=== PATIENT | female | born 1990 | race Caucasian/White ===

== ENCOUNTER → 2022-06-18 | Outpatient (CLI) | payer OTHER, SELFPAY ==
[2022-06-18 10:51] LABS: Anion Gap 6 (5-15); BUN 10 mg/dL (7-18); BUN/Creat Ratio 12.9 RATIO (10-20); Chloride 104 mmol/L (98-107); Cholesterol 272 mg/dL (200); Creatinine, Serum 0.78 mg/dL (0.55-1.02); EST Glomerular Filtration Rate 92 mL/min (>60); Est Glom Filt Rate - Afr Amer 111 mL/min (>60); Glucose 85 mg/dL (74-106); High Density Lipoprotein 59 mg/dL; Potassium 4.1 mmol/L (3.5-5.1); Sodium Level 136 mmol/L (136-145); Triglycerides 424 mg/dL
== END | disposition home or self-care (01) ==
LOC: MFPLAB 08:26
PROVIDERS: PCP Family Medicine; Visit Provider Family Medicine
DX: Z00.00 Encounter for general adult medical examination without abnormal findings (principal)
CPT/HCPCS: 36415; 80048; 80061

== ENCOUNTER → 2023-05-30 | Outpatient (CLI) | payer OTHER, SELFPAY ==
--- OUTSIDE RECORDS SUMMARY | 2023-05-30 07:17 | XMS RPT_ITS | CCD ---
Author Name Unknown Address [address] [place] [address] Organization [facility] Care Team Providers Care Bill Cutter Name Role Phone Unavailable Primary Care Provider UnavailLIZETH Suazo Attending Unavailable Medications Completed/Discontinued Medications Medication Drug Class(es) Dates Sig (Normalized) Sig (Original) citalopram 40 mg oral tablet (1 source) Serotonin Reuptake Inhibitor take 1 tablet by mouth once daily citalopram (CELEXA) 40 mg tablet Take 40 mg by mouth once daily. 0 Active Problems Problem Classification Problem Date Documented Da te Episodic/Chronic Contraceptive and procreative management (1 source) Oral contraception; Translations: [Encounter for surveillance of contraceptive pills] Episodic Results Test Name Value Interpretation Reference Range Facil ity Vital Signs Date Time Vital Sign Value Performing Clinician Valorie lity 06-18-2022 09:55-0500 Body height 164 cm Lizeth Shabana PRINT WASHER.JONATHAN Work Phone: [facility] 06-18-2022 09:55-0500 Body weight 82.1 kg Lizeth Shabana PRINT WASHER.JONATHAN Work Phone: [facility] 06-18-2022 09:55-0500 Diastolic blood pressure 82 mm[Hg] Lizeth [place] PRINT WASHER.PUNCHBOARD ASSEMBLER Work Phone: [facility] 06-18-2022 09:55-0500 Systolic blood pressure 112 mm[Hg] Lizeth [place] PRINT WASHER.PUNCHBOARD ASSEMBLER Work Phone: [facility] Encounters Encounter Date Encounter Type Care Provider Facility Start: 06-18-2022 End: 06-18-2022 ambulatory LIZETH VIERAF Facility:[facility] Start: 06-18-2022 End: 06-18-2022 Patient encounter procedure Lizeth Yucalf PRINT WASHER.PUNCHBOARD ASSEMBLER Work Phone: OB/Gynecology Plan of Treatment Date Care Activity Detail Author Start: 03-14-2026 HPV TESTING HPV TESTING [facility] Start: 03-14-2026 PAP TESTING PAP TESTING [facility] Start: 05-06-2022 DEPRESSION ASSESSMENT DEPRESSION ASS ESSMENT [facility] Start: 01-04-2022 Influenza vaccination INFLUENZA (#1) [facility] Start: 2009 Urine microalbumin profile DTAP,TDAP ,TD (1 - Tdap) [facility] Start: 2008 HEPATITIS C SCREENING HEPATITIS C SC REENING [facility] Start: 2008 HIV SCREENING HIV SCREENING [facility] Start: 01-11-1991 COVID-19 VACCINE (#1) COVID-19 VACCI NE (#1) [facility] Start: 1990 HEPATITIS B (1 of 3 - 3-dose series) HEPATITIS B (1 of 3 - 3-dose series) [facility] Payers Date Payer Category Payer Unknown [employer] [id number] 2018-Present [phone] [address] [place] [address] PPO [id number] 2018 Unknown [id number] Social History Date Type Detail Facility Start: 12-12-2017 Tobacco smoking stat us UTIS Never smoked tobacco [facility] Work Phone: Start: 12-12-2017 Tobacco use and exposure Smoke less tobacco non-user [facility] Work Phone: Start: 06-18-2022 Alcohol intake Current drinke r of alcohol (finding) [facility] Start: 01-18-2020 History SDOH Social Connections Phone 4 [facility] Start: 01-18-2020 History SDOH Social Connections Amish 1 [facility] Start: 01-18-2020 History SDOH Social Connections Membership 2 [facility] Start: 01-18-2020 History SDOH Social Connections Living 7 [facility] Start: 01-18-2020 History SDOH Physica l Activity DPW 3 [facility] Start: 01-18-2020 History SDOH Financial 5 [facility] Start: 01-18-2020 Education 17 [facility] Start: 12-12-2017 Alcohol Comment Socially [facility] Start: 1990 Sex Assigned At Not on file [facility] Progress note 06-18-2022 Note Date & Type Note Facility 06-18-2022 Note HNO ID: [id number] Author: Lizeth Garsia APRN.CNP Service: ? Author Type: Nurse Practitioner Type: Progress Notes Filed: 06/18/2022 10:33 AM Note Text: Reed is a 31 year old who presents for an annual gynecologic exam without complaints. Menses: cycles every 28 days and 5 days of flow. Contraception: combined hormonal contraceptives HPV vaccine: No Last Pap: 03/21/2021 normal HPV: 03/17/2021 negative History of abnormal pap: No Last mammogram: never Sexually active: Yes Pain with intercourse: No Postcoital bleeding: No OB History T0 L0 SAB0 IAB0 Ectopic0 Multiple0 Live Births0 Warper Tender History LMP: 06/05/2022 (Exact Date), Having periods Age at Menarche: Age at First : Age at Menopause: Warper Tender History Comments: Sexual Activity: Yes; Male Contraception: Condom, Pill PAST MEDICAL HISTORY Diagnosis Date High cholesterol PAST SURGICAL HISTORY Procedure Laterality Date NONE FAMILY HISTORY Problem Relation Age of Onset other (Other) Mother Mother was adopted Asthma Father Hyperlipidemia Father Cancer Paternal Aunt 76 Ovarian Hyperlipidemia Sister Asthma Sister Hyperlipidemia Brother No Known Problems Paternal Grandmother No Known Problems Paternal Grandfather SOCIAL HISTORY Social History Tobacco Use Smoking status: Never Smokeless tobacco: Never Vaping Use Vaping Use: Never used Substance Use Topics Alcohol use: Yes Comment: Socially Drug use: No REVIEW OF SYSTEMS Abdomen: No abdominal pain, nausea, vomiting, diarrhea, or constipation. No bloating, early satiety, indigestion, or increased flatulence. Bladder: No dysuria, gross hematuria, urinary frequency, urinary urgency, or incontinence. Breast: No breast lumps, nipple d/c, overlying skin changes, redness or skin retraction. Allergies and current medication updated:Yes EXAM: Ht 5' 4.567 (1.64m) Wt 181 lb (82.1kg) LMP 06/05/2022 BMI 30.53 kg/(m2). GENERAL: pleasant, female in no apparent distress HEENT: Normocephalic, atraumatic, and no lesions NECK: Supple, full range of motion, no adenopathy, and thyroid normal DERMATOLOGY: Normal, without lesions, non-icteric, and non-hirsute BREAST: soft, non-tender, symmetric, no dominant mass, normal nipple-areolar complex, no lymphadenopathy, and no nipple discharge CHEST: Normal inspiratory effort ABDOMEN: soft, non-tender, and no masses PELVIC: external genitalia normal, normal Bartholin's glands, urethra, [place]'s glands, no vulvar lesions, no cervical lesions, good vaginal support, physiologic discharge present, normal appearing perineal body and perianal region BIMANUAL: uterus normal size, shape and consistency, no adnexal masses, and non-tender RECTOVAGINAL: deferred. NEURO: alert and oriented x3,exam grossly non-focal EXTREMITIES: normal ASSESSMENT/PLAN: 1) Health maintenance: Pap/HPV up to date. Mammogram starting age 40. Nutrition, exercise and routine health maintenance exams reviewed. Calcium/Vitamin D supplementation information provided. 2) Contraception: combined hormonal contraceptives. Contraceptive options reviewed and information provided. 3) STD screening: Declined STD check. 4) Follow up one year or sooner as needed Lizeth Garsia APRN.JONATHAN [facility] History of Present illness Narrative 06-18-2022 Lizeth Garsia APRN.JONATHAN - 06/18/2022 9:55 AM EST Note Date & Type Note Facility 06-18-2022 History of Presen t illness Narrative Reed is a 31 year old who presents for an annual gynecologic exam without complaints. Menses: cycles every 28 days and 5 days of flow. Contraception: combined hormonal contraceptives HPV vaccine: No Last Pap: 03/21/2021 normal HPV: 03/17/2021 negative History of abnormal pap: No Last mammogram: never Sexually active: Yes Pain with intercourse: No Postcoital bleeding: No OB History T0 L0 SAB0 IAB0 Ectopic0 Multiple0 Live Births0 Warper Tender History LMP: 06/05/2022 (Exact Date), Having periods Age at Menarche: Age at First : Age at Menopause: Warper Tender History Comments: Sexual Activity: Yes; Male Contraception: Condom, Pill PAST MEDICAL HISTORY Diagnosis Date High cholesterol PAST SURGICAL HISTORY Procedure Laterality Date NONE FAMILY HISTORY Problem Relation Age of Onset other (Other) Mother Mother was adopted Asthma Father Hyperlipidemia Father Cancer Paternal Aunt 76 Ovarian Hyperlipidemia Sister Asthma Sister Hyperlipidemia Brother No Known Problems Paternal Grandmother No Known Problems Paternal Grandfather SOCIAL HISTORY Social History Tobacco Use Smoking status: Never Smokeless tobacco: Never Vaping Use Vaping Use: Never used Substance Use Topics Alcohol use: Yes Comment: Socially Drug use: No REVIEW OF SYSTEMS Abdomen: No abdominal pain, nausea, vomiting, diarrhea, or constipation. No bloating, early satiety, indigestion, or increased flatulence. Bladder: No dysuria, gross hematuria, urinary frequency, urinary urgency, or incontinence. Breast: No breast lumps, nipple d/c, overlying skin changes, redness or skin retraction. Allergies and current medication updated:Yes EXAM: Ht 5' 4.567 (1.64m) Wt 181 lb (82.1kg) LMP 06/05/2022 BMI 30.53 kg/(m^2). GENERAL: pleasant, female in no apparent distress HEENT: Normocephalic, atraumatic, and no lesions NECK: Supple, full range of motion, no adenopathy, and thyroid normal DERMATOLOGY: Normal, without lesions, non-icteric, and non-hirsute BREAST: soft, non-tender, symmetric, no dominant mass, normal nipple-areolar complex, no lymphadenopathy, and no nipple discharge CHEST: Normal inspiratory effort ABDOMEN: soft, non-tender, and no masses PELVIC: external genitalia normal, normal Bartholin's glands, urethra, [place]'s glands, no vulvar lesions, no cervical lesions, good vaginal support, physiologic discharge present, normal appearing perineal body and perianal region BIMANUAL: uterus normal size, shape and consistency, no adnexal masses, and non-tender RECTOVAGINAL: deferred. NEURO: alert and oriented x3,exam grossly non-focal EXTREMITIES: normal ASSESSMENT/PLAN: 1) Health maintenance: Pap/HPV up to date. Mammogram starting age 40. Nutrition, exercise and routine health maintenance exams reviewed. Calcium/Vitamin D supplementation information provided. 2) Contraception: combined hormonal contraceptives. Contraceptive options reviewed and information provided. 3) STD screening: Declined STD check. 4) Follow up one year or sooner as needed Lizeth Garsia APRN.PUNCHBOARD ASSEMBLER documented in this encounter [facility] Progress note 07-26-2021 Note Date & Type Note Facility 07-26-2021 Note HNO ID: [id number] Author: Jeison Rivera APRN.JONATHAN Service: ? Author Type: Nurse Practitioner Type: Progress Notes Filed: 07/26/2021 7:47 AM Note Text: Subjective HPI HPI Reed Mojica is a 31 year old female who presents today for CC of left eye redness, drainage, crusting. This started 1 day ago. Has tried nothing for relief. Symptoms are worsened by nothing. Risk factors recent exposures to pink eye at work/school. Some nasal congestion. Denies cough, st, ear pain. Denies possibility of being . Wears contacts. .Patient presents with: Eye Problem: x 1 day, left eye red and matting PAST MEDICAL HISTORY Diagnosis Date - High cholesterol PAST SURGICAL HISTORY Procedure Laterality Date - NONE ALLERGIES Patient has no known allergies. MEDICATIONS Desogestrel-Ethinyl Estradiol (APRI) 0.15-0.03 mg per tablet Take 1 tablet by mouth once daily. citalopram (CELEXA) 40 mg tablet Take 40 mg by mouth once daily. ciprofloxacin HCl (CILOXAN) 0.3 % ophthalmic solution Use 1 Drop in the left eye four times daily for 7 days. FAMILY HISTORY Problem Relation Age of Onset - other (Other) Mother Mother was adopted - Asthma Father - Hyperlipidemia Father - Cancer Paternal Aunt 76 Ovarian - Hyperlipidemia Sister - Asthma Sister - Hyperlipidemia Brother - No Known Problems Paternal Grandmother - No Known Problems Paternal Grandfather Social History Tobacco Use - Smoking status: Never Smoker - Smokeless tobacco: Never Used Vaping Use - Vaping Use: Never used Substance Use Topics - Alcohol use: Yes Comment: Socially - Drug use: No Review of Systems Constitutional: Negative for chills and fever. HENT: Negative for ear discharge, ear pain and sore throat. Eyes: Positive for discharge and redness. Negative for blurred vision, double vision, photophobia and pain. Neurological: Negative for headaches. Objective Blood pressure 124/78, pulse 96, temperature 36.1 ?C (96.9 ?F), resp. rate 16, weight 78.5 kg (173 lb), last menstrual period 03/06/2021, SpO2 97 %. Physical Exam Constitutional: General: She is not in acute distress. Appearance: She is not toxic-appearing. HENT: Right Ear: Hearing, tympanic membrane and external ear normal. Left Ear: Hearing, tympanic membrane, ear canal and external ear normal. Nose: No mucosal edema. Mouth/Throat: Pharynx: Uvula midline. Eyes: General: Right eye: No discharge. Left eye: No discharge. Conjunctiva/sclera: Right eye: Right conjunctiva is not injected. Left eye: Left conjunctiva is injected. Lymphadenopathy: Cervical: Right cervical: No superficial cervical adenopathy. Left cervical: No superficial cervical adenopathy. Comments: No cervical lymphadenopathy bilaterally Neurological: Mental Status: She is oriented to person, place, and time. ASSESSMENT/PLAN: 1. Acute conjunctivitis of left eye, unspecified acute conjunctivitis type - ICD9: 372.00, ICD10: H10.32 - see medication orders - course and contagiousness issues discussed, including hand washing. - Instructed to call if high fever, development of periorbital redness or swelling, eye pain, visual changes, concerns or if symptoms persist. - CIPROFLOXACIN 0.3 % EYE DROPS Agrees to plan Jeison Rivera APRN.PUNCHBOARD ASSEMBLER [facility] Evaluation note Note Date & Type Note Facility documented in this encounter [facility] Summary Purpose Family History No Family History Records Found Advance Directives No Advanced Directives Records Found Additional Source Comments Source Comments (unrecognize d section and content) In the event this informatio n is protected by the Federal Confidentiality of Alcohol and Drug Abuse Patient Records regulations: The Federal rules restrict any use of the information to criminally investigate or prosecute any alcohol or drug abuse patient.[facility] Reason for Visit (unrecogniz ed section and content) INFORMATION SOURCE (unrecogn ized section and content) FOR RECORDS PERTAINING TO PATIENTS WHO ARE OR HAVE BEEN ENROLLED IN A CHEMICAL DEPENDENCY/SUBSTANCEABUSE PROGRAM, SOME INFORMATION MAY BE OMITTED. This clinical summary was aggregated from multiple sources. Caution should be exercised in using it in the provision of clinical care. This summary normalizes information from multiple sources, and as a consequence, information in this document may materially change the coding, format and clinical context of patient data. In addition, data may be omitted in some cases. CLINICAL DECISIONS SHOULD BE BASED ON THE PRIMARY CLINICAL RECORDS. [facility] [employer] [facility]. provides no warranty or guarantee of the accuracy or completeness of information in this document.
[2023-05-30 10:58] LABS: Cholesterol 260 mg/dL (200); High Density Lipoprotein 52 mg/dL; Triglycerides 267 mg/dL; Very Low Density Lipoprotein 53 mg/dL (5-40)
== END | disposition home or self-care (01) ==
LOC: MTLAB 07:11
PROVIDERS: PCP Family Medicine; Referring Provider Family Medicine; Visit Provider Family Medicine
DX: E78.2 Mixed hyperlipidemia (principal)
CPT/HCPCS: 36415; 80061

== ENCOUNTER 2024-06-02 00:05 | Inpatient (IN) | payer OTHER, SELFPAY ==
[2024-06-01 20:09] VITALS: BMI 35.4
[2024-06-01 20:15] VITALS: BP 131/74; PULSE 112; RESP 16; TEMP 36.4; O2SAT 98
[2024-06-01 22:34] VITALS: BP 135/87; PULSE 92; RESP 16; TEMP 36.8; O2SAT 97
[2024-06-01] MEDS: Morphine 4 MG/ML Syringe 5 MG IM (23:03)
[2024-06-01] MEDS: hydrOXYzine 50 MG/ML Vial 25 MG IM (23:04)
[2024-06-02] VITALS (61 sets, daily range): BP systolic 116–171; BP diastolic 59–93; PULSE 88–150; RESP 16–24; TEMP 36.1–37.5; O2SAT 80–100
--- NOTE | 2024-06-02 00:10 | PCM.HP.OB ---
HPI - General General Date of Admission: 06/02/24 HPI Narrative ESA CANCINO, is a 33 F who presents at 40w2d with contractions. Contractions became more regular and painful but minimal cervical change. During observation deceleration and decision for admission. Maternal Data Information TALIA Calculator Estimated Delivery Date Method Current WG Current Estimate 05/31/24 Manual 40w 2d PFSH PFSH Home Medications ?Medication ?Instructions ?Recorded ?Last Taken ?Type aspirin 81 mg tablet,delayed 81 mg PO DAILY 06/01/24 06/01/24 07:00 History release (Adult Low Dose Aspirin) 81 mg citalopram 40 mg PO DAILY depression 06/01/24 06/01/24 07:00 History 40 mg pantoprazole 40 mg tablet,delayed 40 mg PO DAILY PRN indigestion 06/01/24 Unknown History release (Protonix) vitamin#30 30 mg iron-10 1 cap PO DAILY 06/01/24 06/01/24 07:00 History mg iron-folic acid 1 mg-omg3 1 cap capsule promethazine 12.5 mg tablet 12.5 mg PO DAILY PRN nausea and 06/01/24 06/01/24 07:00 History vomiting 12.5 mg Allergy/AdvReac Type Severity Reaction Status Date / Time No Known Allergies Allergy Verified 06/01/24 20:19 NST FHR Rate Baby A Baseline: 145 Variability:: Moderate Accelerations:: 15 x 15 Decelerations:: Variable FHR Category:: Category II Uterine Activity:: Irregular ROS Constitutional Constitutional: Reports systems reviewed and no addt'l complaints, except as documented; Denies headache(s) Eyes Eyes: Denies acute decrease in peripheral vision, blurry vision or change in vision ENT HEENT: Reports systems reviewed and no addt'l complaints, except as documented Cardiovascular Cardiovascular: Denies chest pain or dizziness Respiratory/Chest Respiratory/Chest: Denies cough, dyspnea, dyspnea on exertion, shortness of breath at rest or shortness of breath with exertion Gastrointestinal Gastrointestinal: Denies abdominal pain, diarrhea, nausea or vomiting Genitourinary Genitourinary: Denies abdominal discomfort Musculoskeletal Musculoskeletal: Denies limited range of motion Integumentary Integumentary: Reports systems reviewed and no addt'l complaints, except as documented Neurologic Neurologic: Reports systems reviewed and no addt'l complaints, except as documented Psychiatric Psychiatric: Reports systems reviewed and no addt'l complaints, except as documented Endocrine Endocrinology: Reports systems reviewed and no addt'l complaints, except as documented Hematologic/Lymphatic Hematologic/Lymphatic: Reports systems reviewed and no addt'l complaints, except as documented Allergic/Immunologic Allergic/Immunologic: Reports systems reviewed and no addt'l complaints, except as documented Vital Signs Vital Signs Vital Signs: 06/01/24 20:15 06/01/24 20:15 06/01/24 20:15 Temperature Temperature Source Pulse Rate 112 H Respiratory Rate Blood Pressure 131/74 H BP Systolic 131 BP Diastolic 74 Pulse Ox 98 06/01/24 20:15 06/01/24 20:15 06/01/24 20:15 Temperature 97.5 F L Temperature Source Temporal Pulse Rate Respiratory Rate 16 Blood Pressure BP Systolic BP Diastolic Pulse Ox 06/01/24 22:34 06/01/24 22:34 06/01/24 22:34 Temperature Temperature Source Pulse Rate 92 Respiratory Rate Blood Pressure 135/87 H BP Systolic 135 BP Diastolic 87 Pulse Ox 97 06/01/24 22:34 06/01/24 22:34 06/01/24 22:34 Temperature 98.3 F Temperature Source Temporal Pulse Rate Respiratory Rate 16 Blood Pressure BP Systolic BP Diastolic Pulse Ox Weight Weight: 212 lb 8.41 oz Body Mass Index (BMI) 35.4 Physical Exam Const alert and oriented x3 General Appearance: cooperative Orientation / Consciousness: awake, oriented to person, oriented to place and oriented to time Exam Limitations: no limitations HEENT normocephalic Head and Scalp: normal to inspection, normocephalic and atraumatic Face and Sinus: normal facial exam Eyes General Eye: normal appearance of both eyes Neck full ROM Chest Chest: symmetrical chest wall rise Resp normal respiratory effort and normal air movement Auscultation: clear to auscultation bilaterally Cardio regular rate, regular rhythm, S1 normal heart sound, S2 normal heart sound, no murmurs, no rub, no gallops and no clicks GI normal to inspection, nondistended, normoactive bowel sounds and non-tender appearance of the vagina normal Bladder / Kidney Exam: no CVA tenderness Back/Spine normal ROM Extremity normal to inspection and full ROM Skin no rashes or lesions noted Neuro oriented x3, CN's II-XII intact bilaterally and moves all extremities Sensorium / Orientation: awake, alert and oriented to person Motor Exam: clonus absent Deep Tendon Reflexes: Rt Patellar (L4): 2+ and Lt Patellar (L4): 2+ Labs Labs Labs: No Data to Display GBS negative RPR negative 1hrGCT negative Rubella Immune HBsAG negative HepC negative HIV negative A Positive GC/CT negative Assessment & Plan (1) 40 weeks gestation of : (2) Late deceleration of heart rate: COMMENT: Admission for labor due to deceleration (3) Obesity: (4) Heartburn during : PLAN: Plan 1) Admit to labor and delivery due to heart rate deceleration. Will continue to monitor if labor progresses. Will initiate pitocin if patient agreeable if needed. 2) Routine labs 3) Continuous EFM 4) Pain management upon request 5) Dr. Huang collaborative physician and notified of patient status, above assessment, and plan.
[2024-06-02] MEDS: Lactated Ringers 1,000 ML 999 ML IV (00:30)
[2024-06-02 00:42] LABS: Absolute Lymphocyte Count 1.27 X10^3/uL (0.83-4.51); Absolute Neutrophil Count 11.6 X10^3/uL (2.0-7.7); Basophil# 0.02 X10^3/uL; Basophil% 0.1 % (0-1); Eosinophil# 0.01 X10^3/uL; Eosinophils% 0.1 % (0-5); Hematocrit 33.6 % (37-47); Hemoglobin 11.2 g/dL (12.0-15.0); Lymphocyte # 1.27 X10^3/ul (0.83-4.51); Lymphocyte % 9.3 % (19-41); Mean Corp Hgb Conc 33.3 g/dL (32-36); Mean Corpuscular Hgb 28.4 pg (27.0-32.0); Mean Corpuscular Volume 85.3 fL (81-99); Mean Platelet Vol. 10.6 fl (6.2-12.0); Monocyte# 0.77 X10^3/uL; Monocyte% 5.6 % (0-10); NRBC Flagged by Analyzer 0 % (0-5); Neutrophil # 11.55 X10^3/uL (2.7-7.7); Neutrophil % 84.5 % (47-70); Platelet Count 378 K/mm3 (150-450); RBC Distribution Width CV 14.6 % (11.6-14.6); Red Blood Count 3.94 M/mm3 (4.2-5.4); White Blood Count 13.7 K/mm3 (4.4-11.0)
[2024-06-02] MEDS: 0.9% Saline Lock 10 ML Syringe IV ×3 (00:45→18:03)
[2024-06-02] MEDS: Ondansetron 4 MG/2 ML Vial IV (00:45)
[2024-06-02 01:17] LABS: Syphilis Antibodies Non-reactive
[2024-06-02] MEDS: fentaNYL-bupivacaine (epidural) 100 ML BAG EPIDURAL (01:33)
[2024-06-02] MEDS: Lactated Ringers 1,000 ML 200 ML IV (01:36)
--- NOTE | 2024-06-02 04:51 | PN.OBGYN_ITS ---
Subjective Subjective Comfortable with epidural. Called by nursing staff for prolonged deceleration, variables, ad late decelerations. Positional changes resolved decelerations but continued minimal variability. Objective Data Objective Data Vital Signs: Vital Signs Temp Pulse Resp BP Pulse Ox 99.3 F H 96 16 123/75 H 100 06/02/24 04:00 06/02/24 04:45 06/02/24 04:00 06/02/24 04:02 06/02/24 04:45 Weight: 212 lb 8.41 oz Body Mass Index (BMI) 35.4 Intake & Output: Intake and Output for Last 24 Hours 05/31/24 06/01/24 06/02/24 23:59 23:59 23:59 Intake Total 1340 / 1340 Balance 1340 / 1340 Lab / Micro Data 06/02/24 00:20 Labs: Laboratory Results - last 24 hr 06/02/24 00:20: WBC 13.7 H, RBC 3.94 L, Hgb 11.2 L, Hct 33.6 L, MCV 85.3, MCH 28.4, MCHC 33.3, RDW Std Deviation 45.0 H, RDW Coeff of Dalia 14.6, Plt Count 378, MPV 10.6, Immature Gran % (Auto) 0.400, Neut % (Auto) 84.5 H, Lymph % (Auto) 9.3 L, [place] % (Auto) 5.6, Eos % (Auto) 0.1, Baso % (Auto) 0.1, Absolute Neuts (auto) 11.6 H, Absolute Lymphs (auto) 1.27, Nucleated RBC % 0, Syphilis Total Ab Non- reactive, Blood Type A POSITIVE, Antibody Screen NEGATIVE Physical Exam Manual OB Exam: presentation cephalic, dilated 5, effaced 90, station 0 and other AROM clear fluid Assessment & Plan (1) Variable heart rate decelerations, antepartum: PLAN: Plan 1) Maternal position changes and IV fluid bolus for heart rate decelerations with continued minimal variability. AROM for clear fluid and internal monitors placed. notified for continued decelerations and recommendation for section. 2) 2grams Ancef and 500mg Azithromycin 3) Reviewed plan with patient for recommendation for section due to heart rate decelerations and remote from delivery. Agreeable to plan and coping well.
[2024-06-02] MEDS: Acetaminophen 500 MG Tablet PO (05:02)
[2024-06-02] MEDS: Sodium Citrate/Citric Acid 30 ML UDC PO (05:02)
[2024-06-02] MEDS: Cefazolin 2 GM in Syringe IV (05:11)
[2024-06-02] MEDS: Azithromycin 500 MG in 0.9% Normal Saline (250mL Bag) 250 ML 255 MG IV (05:11)
[2024-06-02] MEDS: TRANEXAMIC ACID 1,000 MG in 0.9% Normal Saline (100mL Bag) 100 ML 440 MG IV (05:15)
--- NOTE | 2024-06-02 06:15 | OP.PCM_ITS ---
Assessment & Plan (1) Variable heart rate decelerations, antepartum: (2) Obesity: QUALIFIERS: Obesity type: due to excess calories Obesity classification: adult class 2 (BMI 35 - 39.9) Serious obesity comorbidity presence: without serious comorbidity Body mass index: BMI 35.0-35.9 Qualified Code(s): E66.812 - Obesity, class 2; E66.09 - Other obesity due to excess calories; Z68.35 - Body mass index [BMI] 35.0-35.9, adult (3) Late deceleration of heart rate: COMMENT: Admission for labor due to deceleration (4) 40 weeks gestation of : (5) deliv NOS-unsp: Maternal Data Information TALIA Calculator Estimated Delivery Date Method Current WG Current Estimate 05/31/24 Manual 40w 2d Final TALIA: 05/31/24 Gestational age: 40 06/12 Operative Report (OB) Cecarean Details Procedure Type: low transverse Date of Procedure: 06/02/24 Procedure Start Time: 08:25 Procedure Stop Time: 06:06 Time of Delivery: 05:32 Pre-Operative Diagnosis: Other Other Pre-Operative diagnosis: variable and late decelerations, persistent category 2 FHTs remote from delivery Post-Operative Diagnosis: Same as Pre-operative diagnosis Classification: DIONISIO Type of Anesthesia: Epidural Special Medications: duramorph Antibiotic Given: Ancef 2 grams IV x1 and Zithromax 500 mg/5 mL X1 Drain: Gomez to straight drain Estimated Blood Loss: 800 Fluids Replaced: 1100 Findings Description of surgery: The patient arrived in spontaneous labor. Her labor progressed naturally she was not on Pitocin. She had prolonged decelerations, variable and late decelerations. These persisted despite intrauterine resuscitative measures. There is persistent category 2 heart tones remote from delivery. At this point patient was counseled about proceeding with section vs continuing labor and she desired to proceed. The patient was taken to the operating room. She was prepped and draped in the dorsal supine position with a leftward tilt. A Pfannenstiel skin incision was made approximately 2 cm above the symphysis pubis and carried through to underlying layer fascia with the scalpel. The fascia was incised incised in the midline and extended laterally with the Jones scissors. The fascia was dissected off the rectus muscles with blunt and sharp dissection. The rectus muscles were in the midline and the peritoneum was entered bluntly. The peritoneal incision was stretched and the bladder blade was placed. The uterine incision was made in a low transverse fashion with the scalpel and extended superiorly and inferiorly with blunt dissection. The amniotic membranes were ruptured bluntly and clear amniotic fluid returned. The infant's head was brought to the incision in the flexed position and delivered without difficulty. The remainder of the infant was delivered with gentle traction and fundal pressure in the standard fashion. The mouth and nares were bulb suctioned. The cord was clamped and cut as the was stimulated. Cord clamping was not delayed, the baby had a weak cry and a heart rate over 100 bpm. The was handed off to the waiting nursing staff. The placenta was delivered with fundal massage and gentle traction in the standard fashion. The uterus was exteriorized and cleared of all clots and debris. . The uterine incision was closed with #1 Vicryl in a running locked fashion. A second layer of the same suture was used in an imbricating fashion to obtain hemostasis. 2-0 Vicryl [id number] sutures were needed along the left corner of the incision through a bleeding sinus to obtain hemostasis. The incision was examined and was found to be hemostatic. The uterus was placed back into the peritoneal cavity and hemostasis was again confirmed. Hemablast was placed over the incision prophylactically and in each layer during closure. The rectus muscles were examined and any bleeding was Bovie cauterized. The parietal peritoneum and rectus muscles were closed en bloc with an 0Vicryl running suture. The rectus fascia was examined and any bleeding was Bovie cauterized and the rectus fascia was closed with #1 PDS suture in a running standard fashion. The subcutaneous tissue was examining and any bleeding was Bovie cauterized. The subcutaneous tissue was reapproximated with 3-0 Vicryl suture. The skin was closed in a subcuticular fashion by the SPECIAL OFFICER AUTOMAT with me present in the labor and delivery suite. I performed the remainder of the procedure with assistance. Cord gases were collected. All sponge, lap, and needle counts were correct. The patient was taken to her room for recovery in a stable condition. Surgical findings: Normal uterus tubes and ovaries, normal placenta with three-vessel cord Presentation: Vertex Amniotic Membrane Rupture Type: Artificial Amniotic Fluid Description: Clear Placental Delivery Description: Expressed Placenta Disposition: [facility] Specimen collected: No Cord Vessel Description: 3 Vessels Cord Entanglement: None Cord Gases: ABG and VBG A gender: Female (Esther, 7 pounds 2 ounces) (1 minute): 2 (5 minute): 8 Delayed Cord Clamping: No President Ceo & Founder program host: Yes Mva Reactor Operator: Elizabeth Stone Tasks completed by spa assistant manager: Closing and Retracting Additional mechanic assistant?: No Complications Complications: No Admit VTE Documentation VTE Present on Admission: No VTE Mechan Device Prophylaxis: SCD's VTE Pharm Prophylaxis Ordered: Yes
[2024-06-02] MEDS: Oxytocin 15 Units/NS 250ml 15 UNITS/250 ML IV.SOLN 83 UNITS IV (06:32)
[2024-06-02] MEDS: Ketorolac 30 MG/ML Syringe IV ×3 (07:02→18:04)
[2024-06-02] MEDS: Acetaminophen 500 MG Tablet 1000 MG PO ×2 (11:18→18:04)
--- NOTE | 2024-06-02 11:58 | CASEMGMT ---
Social Work Assessment Labor and Delivery Unit Patient Address: [address] [place] [address] [place] [address] Phone number: [phone] Date of Referral: 06/02/24 Time of Referral:? 730 Referred By: Dr. Huang Date of Intervention: ??06/02/24 Time of Intervention:? 1045 Reason for Referral:? anxiety and depression Sw completed chart review and acknowledges social work consult due to maternal mental health history. Sw presented to bedside and introduced self to mother of baby (MOB- Reed) and father of baby (FOB- Win). Sw explained reason for sw involvement and completed psychosocial assessment. History obtained from: medical records, MOB and FOB. ? Household composition: Currently residing in the family home is MOB, FOB and baby to be added to residence when ready for discharge. Parents deny any housing concerns. Patient's parent/guardian status:? NURY and FOSunshine met online and have been together for 6 years and are . This is first baby for both parents. No concerns reported of domestic violence or intimate partner violence. Medical History: ?NURY is 33 year old female who is 1, para 0- now 1 following labor and delivery of . NURY received routine care during with [facility]. NURY presented to hospital in labor and required due to decelerations. NURY delivered baby via on 06/02/24 at 40 weeks gestation. Baby girl, named Esther Huerta, was born weighing 7lb 2oz with apgars of 2 and 8 at one and five minutes of life, respectfully. NURY plans on breast feeding and baby will be followed by Dr. Sharp for pediatrics. Educational Status:? Both parents graduated from high school, NURY obtained her Bachelor's degree and DIXON has some college courses but no degree. Parents deny problems with reading, learning or comprehension. Financial Status: Both parents are employed outside of the home. 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 Supplies: All necessary baby supplies obtained, including: car seat, safe sleep space, clothes, diapers and wipes. Childcare/Caregiver(s):?NURY will be the primary caregiver to baby along with DIXON when not at work. When both parents are working baby will be enrolled in a day care Transportation:?? Both parents have their drivers license and reliable means of transportation, no barriers. Programs/Agencies Involved: ???MOB is connected to mental health services and supports with a private provider, Radha Quick. Children Services/Legal Issues:??? No history of children services involvement, no issues or concerns warranting need for referral to be made at this time. Behavioral Health Issues: ??Mental Health History:???FOB denies mental health history. MOB states that she has a history of anxiety and has been prescribed citalopram for over 6 years. MOB states that her mental health is managed and she is thankful for the support that she has in place. Substance Use History: Parents deny substance use prior to and during . ?? Family History:?Parents deny family history of alcohol or substance use as well as significant mental health diagnoses. ? Drug Screens: No drug screens observed in chart review. Family/Social Stressors:? Parents deny any issues, concerns or stressors at this time. Support Systems: MOB states that FOB and both grandma's are her biggest supports at this time. Depression/Shaken Baby/Safe Sleeping: Sw educated MOB on signs and symptoms of baby blues and mood and anxiety disorders to be mindful of during this period. MOB states that this is something that they have discussed and MOB states that she feels comfortable discussing her feelings and problems with FOB. FOB states that if MOB were to struggle he would be able to recognize that and would know how to help and support her. MOB states that she is feeling good now, but is just tired after laboring and then having surgery. Sw educated parents on shaken baby prevention and ABCs of safe sleep. Parents express understanding. ASSESSMENT:? MOB and baby admitted following labor and delivery of . MOB with mental health history positive for anxiety. MOB is prescribed medication to help manage her mental health symptoms as well as counseling supports. FOB was observed to be supportive to MOB who had unexpected . Parents were polite, talkative and receptive to sw involvement and support. MOB states that other than feeling tired she feels good regarding her mental health: denying anxiety, sadness or depression. Parents have obtained all necessary baby supplies and have natural supports in place. PLAN:?? No other services requested or indicated. MOB and baby to be discharged when medically ready. Parents were provided literature regarding: signs and symptoms of baby blues and mood and anxiety disorders, Help Me Grow, shaken baby prevention, ABCs of safe sleep and a list of county resources that are available for them should any needs present themselves. Radha Salvador, ESTHETICIAN SPA, SUPERVISOR PAPER TESTING
[2024-06-02] MEDS: Enoxaparin 40 MG/0.4 ML Syringe SC (18:04)
[2024-06-03 00:25] VITALS: BP 125/92; PULSE 85; RESP 16; TEMP 36.9; O2SAT 97
[2024-06-03] MEDS: Acetaminophen 500 MG Tablet 1000 MG PO ×4 (00:29→18:12)
[2024-06-03] MEDS: Ketorolac 30 MG/ML Syringe IV (00:30)
[2024-06-03] MEDS: 0.9% Saline Lock 10 ML Syringe IV (00:30)
[2024-06-03] MEDS: oxyCODONE 5 MG Tablet PO (01:15)
[2024-06-03 03:35] VITALS: BP 117/80; PULSE 92; RESP 16; TEMP 36.4; O2SAT 96
[2024-06-03 06:35] LABS: Hematocrit 28.9 % (37-47); Hemoglobin 9.2 g/dL (12.0-15.0); Mean Corp Hgb Conc 31.8 g/dL (32-36); Mean Corpuscular Volume 87.8 fL (81-99); Mean Platelet Vol. 10.3 fl (6.2-12.0); Platelet Count 288 K/mm3 (150-450); RBC Distribution Width CV 15.1 % (11.6-14.6); RBC Distribution Width SD 48.1 fl (35.1-43.9); Red Blood Count 3.29 M/mm3 (4.2-5.4); White Blood Count 12.1 K/mm3 (4.4-11.0)
--- NOTE | 2024-06-03 06:55 | PCM.PN.OB ---
Subjective Subjective Doing well. Ambulating and voiding without difficulty. Mild lochia. Breast feeding. Objective Data Objective Data Vital Signs: Vital Signs Temp Pulse Resp BP Pulse Ox O2 Del Method 97.5 F L 92 16 117/80 96 Room Air 06/03/24 03:35 06/03/24 03:35 06/03/24 03:35 06/03/24 03:35 06/03/24 03:35 06/03/24 03:35 Oxygen Delivery Method Room Air Weight: 96.4 kg Body Mass Index (BMI) 35.4 Intake & Output: Intake and Output for Last 24 Hours 06/01/24 06/02/24 06/03/24 23:59 23:59 23:59 Intake Total 2635 / 2635 Output Total 2650 / 2650 200 / 200 Balance -15 / -15 -200 / -200 Lab / Micro Data 06/03/24 06:00 Labs: Laboratory Results - last 24 hr 06/03/24 06:00: WBC 12.1 H, RBC 3.29 L, Hgb 9.2 L, Hct 28.9 L, MCV 87.8, MCH 28.0, MCHC 31.8 L, RDW Std Deviation 48.1 H, RDW Coeff of Dalia 15.1 H, Plt Count 288, MPV 10.3 ROS Constitutional Constitutional: Denies fatigue, fever(s) or malaise Eyes Eyes: Denies change in vision ENT HEENT: Denies dizziness or headache(s) Cardiovascular Cardiovascular: Denies chest pain, dyspnea or lightheadedness Respiratory/Chest Respiratory/Chest: Denies cough or dyspnea Gastrointestinal Gastrointestinal: Denies change in bowel habits Genitourinary Genitourinary: Denies burning urination or genital lesions Integumentary Integumentary: Denies rash Neurologic Neurologic: Denies confusion, dizziness, headache(s), numbness or weakness Physical Exam Const alert General Appearance: cooperative GI GI Narrative: soft, moderate distention, fundus firm, appropriately tender. Abdominal bandage clean dry and intact Assessment & Plan (1) deliv NOS-unsp: PLAN: Plan struggling with breast feeding Restarting citalopram routine care
[2024-06-03] MEDS: Ibuprofen 600 MG Tablet PO ×3 (07:01→18:52)
[2024-06-03 07:58] VITALS: BP 121/81; PULSE 91; RESP 16; TEMP 36.1; O2SAT 96
[2024-06-03] MEDS: Senna/Docusate Sodium 1 Tablet PO (10:25)
[2024-06-03] MEDS: Citalopram 40 MG TABLET PO (10:25)
[2024-06-03 16:25] VITALS: BP 123/81; PULSE 106; RESP 16; TEMP 36; O2SAT 97
--- NOTE | 2024-06-03 18:55 | NURSING ---
Pt c/o of red area from where she removed the bandaid covering the epidural area. It is noted that pt does have red, raised area where the adhesives from the bandaid was on her skin. No complaints of itching.
[2024-06-03 20:40] VITALS: BP 131/86; PULSE 98; RESP 16; TEMP 36.4; O2SAT 98
[2024-06-03] MEDS: Enoxaparin 40 MG/0.4 ML Syringe SC (20:50)
[2024-06-04] MEDS: Acetaminophen 500 MG Tablet 1000 MG PO ×3 (00:11→14:04)
[2024-06-04] MEDS: Ibuprofen 600 MG Tablet PO ×3 (01:01→14:07)
[2024-06-04] MEDS: SimETHICONE 80 MG Chewable Tablet PO (01:08)
[2024-06-04 01:10] VITALS: BP 144/87; PULSE 98; RESP 18; TEMP 36.4; O2SAT 100
--- NOTE | 2024-06-04 08:19 | PCM.PROGNOTE ---
Subjective Subjective patient seen at bedside, doing well. Patient reports good pain control. lochia mild. passing flatus. Objective Data Objective Data Vital Signs: Vital Signs Temp Pulse Resp BP Pulse Ox O2 Del Method 97.5 F L 98 18 144/87 H 100 Room Air 06/04/24 01:10 06/04/24 01:10 06/04/24 01:10 06/04/24 01:10 06/04/24 01:10 06/04/24 01:10 Oxygen Delivery Method Room Air Weight: 96.4 kg Body Mass Index (BMI) 35.4 Intake & Output: Intake and Output for Last 24 Hours 06/02/24 06/03/24 06/04/24 23:59 23:59 23:59 Intake Total 2635 / 2635 Output Total 2650 / 2650 200 / 200 Balance -15 / -15 -200 / -200 Lab / Micro Data 06/03/24 06:00 Physical Exam Narrative abd: dressing dry and intact. fundus firm. Const alert and oriented x3 General Appearance: cooperative HEENT normocephalic Neck General: normal visual inspection GI soft to palpation and non-distended GI Narrative: Fundus firm Extremity normal to inspection and no calf tenderness Skin no rashes or lesions noted Neuro oriented x3 and CN's II-XII intact bilaterally Psych mental status grossly normal Assessment & Plan Assessment/Plan (1) deliv NOS-unsp: PLAN: Plan POD# 2 , Doing well Routine care pain mgmt monitor VS ambulation dc home
--- NOTE | 2024-06-04 08:25 | DCINST_ITS ---
Discharge Instructions Diet Discharge Diet: No restrictions DC O2, CPAP, BIPAP needs Home O2 Discharge instructions: No Dressing / Incision May resume sexual activity in: 6-8 weeks Lifting Restrictions: 25 Dressing / Incision Call your doctor if your incision/area has: Continuous Slow Oozing, Sudden Increased Bleeding, Increased Pain/ Swelling, Increased Redness, Foul Smelling Discharge and Swelling at the incision site Call your doctor if you observe: Fever of 101 or Higher, Inability to urinate, Using more than 1 pad per hour and Uncontrolled pain Additional Dressing/Incision Instructions:: remove dressing at 7 days post op- if it becomes saturated prior to that time you may remove it. Let soap and water run over incision sites and dab dry. keep incision clean and dry. Follow Up Care Please Follow Up With: Margie German CNM When: 1 weeks post of incision check and again at 6 weeks post . [phone] Test Results: Test results from this visit will be discussed in further detail at your follow- up appointment, if applicable. Discharge Plan Admission Admit Date/Time: 06/02/24 00:05 Attending Provider: Dinorah Huang Primary Care Provider: Regan Payne Discharge Orders/Prescriptions Prescriptions: New acetaminophen 500 mg Tablet 1,000 mg PO Q6H Qty: 0 0RF ibuprofen 600 mg Tablet 600 mg PO Q6H Qty: 0 0RF simethicone 80 mg Tablet,Chewable 80 mg PO PCHS PRN (Reason: Indigestion/stomach pain) Qty: 0 0RF Continued PNV #[id number] acid-[id number] 30 mg iron-10 mg iron-1 mg capsule 1 cap PO DAILY citalopram [Celexa] 40 mg PO DAILY pantoprazole [Protonix] 40 mg tablet,delayed release (DR/EC) 40 mg PO DAILY PRN (Reason: indigestion) Discontinued aspirin [Adult Low Dose Aspirin] 81 mg tablet,delayed release (DR/EC) 81 mg PO DAILY promethazine 12.5 mg tablet 12.5 mg PO DAILY PRN (Reason: nausea and vomiting) Referrals / Follow Up: Regan Payne MD [Primary Care Provider] - Disposition Disposition (needs filled in before D/C Order can be placed): Home, Self Care
--- NOTE | 2024-06-04 08:28 | DS.PCM_ITS ---
Discharge Summary Date of Admission: 06/02/24 Date of Discharge: 06/04/24 Summary: Patient was admitted to [facility] on 06/02/2024 in labor was found to have heart rate decelerations/late decelerations and underwent a primary section. She had an uncomplicated postoperative course and was discharged home on postoperative day #2 in stable condition. Meaningful Use Info Meaningful Use Meaningful Use Diagnoses (Choose all that apply): None applicable Ischemic Stroke Statin Dosing Therapy Reference: STATIN DOSE THERAPY REFERENCE: * Patients > 75 years receive moderate or high dose statin therapy. * Patients 75 years or YOUNGER should receive HIGH intensity statin dose unless contraindicated. You will be required to document reason for non-treatment if statin daily dose does not meet guidelines. HIGH DOSE STATIN THERAPY DAILY Atorvastatin > than or = to 40 mg Rosuvastatin > than or = to 20 mg Amlodipine + Atorvastatin > than or = to 2.5/40 mg Ezetimibe + Simvastatin 10/80 mg Simvastatin 80mg Discharge Plan Admission Admit Date/Time: 06/02/24 00:05 Attending Provider: Dinorah Huang Primary Care Provider: Regan Payne Discharge Orders/Prescriptions Prescriptions: New acetaminophen 500 mg Tablet 1,000 mg PO Q6H Qty: 0 0RF ibuprofen 600 mg Tablet 600 mg PO Q6H Qty: 0 0RF simethicone 80 mg Tablet,Chewable 80 mg PO PCHS PRN (Reason: Indigestion/stomach pain) Qty: 0 0RF Continued PNV #[id number] acid-omega3 30 mg iron-10 mg iron-1 mg capsule 1 cap PO DAILY citalopram [Celexa] 40 mg PO DAILY pantoprazole [Protonix] 40 mg tablet,delayed release (DR/EC) 40 mg PO DAILY PRN (Reason: indigestion) Discontinued aspirin [Adult Low Dose Aspirin] 81 mg tablet,delayed release (DR/EC) 81 mg PO DAILY promethazine 12.5 mg tablet 12.5 mg PO DAILY PRN (Reason: nausea and vomiting) Referrals / Follow Up: Regan Payne MD [Primary Care Provider] - Disposition Disposition (needs filled in before D/C Order can be placed): Home, Self Care
[2024-06-04 08:45] VITALS: BP 132/83; PULSE 86; RESP 18; TEMP 36.1; O2SAT 98
[2024-06-04 08:50] VITALS: TEMP 36.4
[2024-06-04] MEDS: Citalopram 40 MG TABLET PO (09:51)
[2024-06-04] MEDS: Senna/Docusate Sodium 1 Tablet PO (09:51)
--- NOTE | 2024-06-04 09:56 | NURSING ---
notified and pt wanting them to stop in and see them.
[2024-06-04 09:57] VITALS: PULSE 104; RESP 16; O2SAT 98
[2024-06-04 13:35] VITALS: BP 136/90; PULSE 94; RESP 18; TEMP 36.5; O2SAT 98
--- NOTE | 2024-06-04 13:56 | NURSING ---
All documentation by student nurse Jono Todd reviewed by nursing service administrator Kanwal JENNINGSN, RN.
== END 2024-06-04 16:20 | disposition home or self-care (01) | DRG 788 ==
LOC: WPOUT 00:09 → WP 00:09
PROVIDERS: Advanced Practice Midwife; Admitting Provider Obstetrics & Gynecology; PCP Family Medicine; Referring Provider Obstetrics & Gynecology; Visit Provider Obstetrics & Gynecology
DX: O76 Abnormality in fetal heart rate and rhythm complicating labor and delivery (principal); O99.214 Obesity complicating childbirth; E66.812 Obesity, class 2; Z37.0 Single live birth; Z3A.40 40 weeks gestation of pregnancy